=== PATIENT | male | born 1950 | race Caucasian/White ===

== ENCOUNTER 2016-07-03 08:07 | Emergency (ER) | payer BC ==
[2016-07-03 08:38] VITALS: BP 108/77
--- NOTE | 2016-07-03 14:15 | UC ---
Jaskaran Fay Adam, scribed for Jesusita Liz DO on 07/03/16 at 0832 . General HPI - HPI Summary HPI Summary: Pt is a 65 year old male presenting with flu-like symptoms. For the past 4 days he has been having congestion, rhinorrhea, and a cough producing phlegm. He had a fever with Tmax 101.7 F which he states broke 3 nights ago. He also c/o pain on the top of his head and superficial aches in his chest (tender to palpation) . Pt's appetite has also been diminished and he states that nothing tastes normal. He denies sore throat, N/V/D, SOB, abdominal pain, rash, and dysuria. Pt did not get a flu shot this year. He states that he has been visiting the hospital often over the past few months to see his 's sister who recently from cancer. His also had similar symptoms last month but her symptoms were milder. PMHx of controlled HTN and HLD. He is a former smoker. FMHx of cardiac disease (father had heart transplant) and DM (grandmother) and colon cancer (both sides of family). 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 Negative: Abdominal Pain, Chest Pain, Diarrhea, Nausea, SOB, Vomiting, Wheezing - Allergy/Home Medications Allergies/Adverse Reactions: Allergies Allergy/AdvReac Type Severity Reaction Status Date / Time No Known Allergies Allergy Verified 01/27/16 13:37 PMH/Surg Hx/FS Hx/Imm Hx Cardiovascular History Of: Reports: Hypertension - Surgical History Surgical History: None - Family History Known Family History: Positive: Cardiac Disease, Diabetes, Other - cardiac disease (father had heart transplant) and DM (grandmother) and Negative: Hypertension - Social History Occupation: Employed Full-time Lives: With Family - Alcohol Use: Occasionally Substance Use Type: None Smoking Status (MU): Former Smoker - Immunization History Most Recent Tetanus Shot: 1 wk ago Review of Systems Constitutional: Fever ENT: Other - Congestion, rhinorrhea Respiratory: Cough Gastrointestinal: Other - Decreased appetite Musculoskeletal: Myalgia Neurological: Headache - Top of head All Other Systems Reviewed And Are Negative: Yes Physical Exam Triage Information Reviewed: Yes Appearance: Well-Appearing, No Pain Distress, Well-Nourished Vital Signs: Initial Vital Signs Temp 98.3 F 07/03/16 08:28 Pulse 68 07/03/16 08:28 Resp 16 07/03/16 08:28 BP 108/77 07/03/16 08:28 Pulse Ox 96 07/03/16 08:28 Vital Signs Reviewed: Yes Eyes: Positive: Conjunctiva Clear. Negative: Discharge ENT: Positive: Normal ENT inspection, Pharynx normal, TMs normal. Negative: Tonsillar swelling, Tonsillar exudate, Trismus, Muffled/hoarse voice Neck exam: Normal Neck: Positive: Supple Respiratory: Positive: Chest non-tender, Lungs clear, Normal breath sounds, No respiratory distress Cardiovascular: Positive: RRR, No Murmur Abdomen Description: Positive: Nontender, Soft. Negative: CVA Tenderness (R), CVA Tenderness (L), Distended, Guarding, McBurney's Point Tenderness Bowel Sounds: Positive: Present Musculoskeletal Exam: Normal Neurological: Positive: Alert, Muscle Tone Normal Psychological Exam: Normal Psychological: Positive: Age Appropriate Behavior Skin Exam: Normal Skin: Positive: Other - Warm, dry, normal color Diagnostics - Laboratory Diagnostic Studies Completed/Ordered: Influenza A Rapid - Negative. Influenza B Rapid - Positive Course/Dx - Differential Dx - Multi-Symptom Provider Diagnoses: influenza Discharge - Discharge Plan Condition: Stable Disposition: HOME Prescriptions: guaiFENesin ER TAB [Mucinex*] 600 mg PO BID PRN #1 box PRN Reason: Cough Patient Education Materials: Influenza (ED) Referrals: Kuldeep Gregory MD [Primary Care Provider] - If Needed Additional Instructions: Since your appetite has been low we would recommed that you drink bone broth which is both nourishing and hydrating. Look up a recipe for bone broth with bones from grass fed meat as well as ingredients like sweet potato, kale, carrots, red cabbage, onion, celery and beets. Add vinegar and salt. You can also maple syrup. Bring it to a boil and then let it simmer. Cook for 12-24 hours. Drink approximately 1 cup of broth per day. Since it takes a full day to cook, you can buy pre-made broth from the [employer] in [place] in the meantime. EXPECTORANT MEDICATION: An expectorant medicine has been prescribed. This type of drug makes mucous thinner, helping the sinuses, nose, and bronchial tubes to remain free of pus and mucous. Expectorants make a cough less severe and more comfortable, and help infected sinuses drain. In general, antihistamines defeat the purpose of the expectorant by making mucous thicker. They should be avoided unless specifically recommended by your physician. YOU HAVE ALREADY HAD FLU FOR 4 DAYS NOW AND YOU APPEAR TO BE GETTING BETTER, WHICH IS GREAT. HOWEVER, IF SYMPTOMS WORSEN OR NEW SYMPTOMS DEVELOP, PLEASE RETURN FOR RE-EVALUATION OR GO TOT ED IF WE ARE CLOSED. The documentation as recorded by the Jaskaran encinas Adam accurately reflects the service I personally performed and the decisions made by me, Jesusita Liz DO.
== END 2016-07-03 09:40 | disposition home or self-care (01) ==
LOC: UCEAST 08:07
DX: J11.1 Influenza due to unidentified influenza virus with other respiratory manifestations (principal); I10 Essential (primary) hypertension; Z87.891 Personal history of nicotine dependence
CPT/HCPCS: 87502; 99212; G0463